=== PATIENT | female | born 2000 | race Caucasian/White ===

== ENCOUNTER 2019-07-05 18:01 | Emergency (ER) | payer OTHER ==
--- OUTSIDE RECORDS SUMMARY | 2019-07-05 18:03 | XMS REPORT | Clinical Summary ---
:2000 Author Organization [facility] Address [address] [place] [address] Care Team Providers Name Role Phone Pcp, No Primary Care Provider Unavailable Allergies Active Allergy Reactions Severity Noted Date Comments Dicyclomine Swelling 03/24/2018 Metoclopramide Hcl Other (See Comments) 04/15/2018 Muscle "Twitching" Medications Medication Sig Dispensed Refills Start Date End Date Status promethazine (PHENERGAN) Take 12.5 mg by 0 Active 12.5 MG tablet mouth every 6 (six) hours as needed for Nausea. ondansetron (ZOFRAN-ODT) Take 4 mg by 0 Active 4 MG disintegrating mouth every 8 tablet (eight) hours as needed for Nausea. melatonin 3 mg Tab Take 3 mg by 0 Active tablet mouth every night as needed. Active Problems Not on file Social History Tobacco Use Types Packs/Day Years Used Date Never Smoker Smokeless Tobacco: Never Used Alcohol Use Drinks/Week oz/Week Comments No Sex Assigned at Date Recorded Not on file Job Start Date Occupation Industry Not on file Not on file Not on file Travel History Travel Start Travel End No recent travel history available. Last Filed Vital Signs Not on file Plan of Treatment Not on file Results Not on fileafter 07/04/2018 Insurance Payer Benefit Plan / Group Subscriber ID Type Phone Address [facility] x[facility] HMO/POS CARE CHOICE
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
--- OUTSIDE RECORDS SUMMARY | 2019-07-05 18:04 | XMS REPORT ---
:2000 [facility] Address [address] [place] [address] [address] [place] [address] Care Team Providers Name Role Phone CAMILO HORAN Unavailable Unavailable DAVON MEEKS Unavailable Unavailable MUJICA MSONTHI - Unavailable Unavailable Problems This patient has no known problems. Allergies, Adverse Reactions, Alerts This patient has no known allergies or adverse reactions. Medications This patient has no known medications. Encounters Start End Encounter Admission Attending Care Care Encounter Date/Time Date/Time Type Type Clinicians Facility Department ID 2017-02-06 2017-02-08 Inpatient 1 [facility] [id number] 03:57:00 15:52:00 MSONTHI Results Test Description Test Time Test Comments Text Results Atomic Results Result Comments TISSUE EXAM 2018-04-21 18:38:00 Surgical Pathology Report Case: [id number] Authorizing Provider: Camilo Horan, Collected: 04/18/2018 0951 Ordering Location: [facility] ENDOSCOPY Received: 04/18/2018 1139 SERVICES Pathologist: Arlette Chong MD Specimens: A) - Duodenum, BX B) - Biopsy, Gastric, RANDOM BX C) - Distal Esophagus, BX D) - Proximal Esophagus, BX A. DUODENUM, BIOPSY: - NO SIGNIFICANT PATHOLOGIC ABNORMALITIESB. STOMACH, RANDOM BIOPSY: - MINIMAL CHRONIC INFLAMMATION WITH REACTIVE CHANGE - NO HELICOBACTER PYLORI MICROORGANISMS IDENTIFIEDC. DISTAL ESOPHAGUS, BIOPSY: - NO SIGNIFICANT PATHOLOGIC ABNORMALITIESD. PROXIMAL ESOPHAGUS, BIOPSY: - NO SIGNIFICANT PATHOLOGIC ABNORMALITIESCC/pl Signing Pathologist Direct Phone Line: [phone] signed by Arlette Chong MD on 04/21/2018 at 6:38 [id number] x4; [id number] x1; [id number] x 1Intractable vomiting with nausea A. Duodenum biopsy. B. Random gastric biopsy. C. Distal esophagus biopsy. D. Proximal esophagus biopsy Specimen is received in four containers of formalin all labeled with the patient's information.Specimen A: Labeled "duodenum biopsy" consists of multiple fragments of bowden tissue ranging from 0.1 to 0.3 cm, submitted in A1.Specimen B: Labeled "random gastric biopsy" consists of four fragments of bowden tissue ranging from 0.3 to 0.6 cm, submitted in B1.Specimen C: Labeled "distal esophagus biopsy" consists of a 0.2 cm fragment of off-white soft tissue submitted in C1.Specimen D: Labeled "proximal esophagus biopsy" consists of a single fragment of off-white tissue measuring 0.2 cm, submitted entirely in D1. CG/Nikita: The duodenum biopsy consists of multiple pieces of small bowel mucosa with intact villous and lamina propria content. There is no acute inflammation, granuloma or dysplasia is present. The PAS stain does not show metaplastic gastric epithelium. No increased intraepithelial lymphocytes to suggest celiac disease. B. The stomach random biopsy consists of multiple pieces of oxyntic mucosa with mild lymphocytic infiltrate in the lamina propria. No acute inflammation, intestinal metaplasia or dysplasia is present. No Helicobacter pylori microorgansim is identified by Warthin-starry stain. C and D: The distal esophagus and proximal esophagus shows similar findings. They show multiple pieces of squamous mucosa with no significant pathologic abnormalities. No features of reflux esophagitis or dysplasia is seen. HEPATIC FUNCTION PANEL 2018-03-24 22:11:00 Test Item Value Reference Range Comments TOTAL PROTEIN (BEAKER) (test klne=080) 7.3 gm/dL 6.0-8.3 ALBUMIN (BEAKER) (test msyk=3124) 4.3 g/dL 3.5-5.0 BILIRUBIN TOTAL (BEAKER) (test cyuh=839) 0.4 mg/dL 0.2-1.2 BILIRUBIN DIRECT (BEAKER) (test sefg=573) 0.1 mg/dL 0.1-0.5 ALKALINE PHOSPHATASE (BEAKER) (test ywoz=942) 59 U/L 40-150 AST (SGOT) (BEAKER) (test tkrf=159) 14 U/L 5-34 ALT (SGPT) (BEAKER) (test aqhv=804) 14 U/L 6-55 CT, [id number] 20:48:00Reason for exam:->abdominal painIs the patient ?->UnknownWhat is the patient's sedation requirement?->No SedationFINAL REPORT CT, ABDOMEN \\T\\ PELVIS, WITH IV CONTRAST INDICATION: abdominal paingi bleed COMPARISON: None TECHNIQUE:Post contrast abdomen and pelvis CT. Coronal and sagittal reformatted images obtained. DOSE REDUCTION: Dose modulation, iterative reconstruction, and/or weight-based adjustment of the mA/kV was utilized to reduce the radiation dose to as low as reasonably achievable. FINDINGS: Lower thorax: Visible airspaces clear. No effusion. Liver: No parenchymal abnormality.Gallbladder and biliary tree: Prior cholecystectomy. Mild central ductal prominence without dilation.Pancreas: No acute findings.Spleen: No acute findingsAdrenal Glands: No acute findings.Kidneys and ureters: No hydronephrosis or nephrolithiasis.Bladder and reproductive organs: Intrauterine device appears appropriately positioned. Stomach and Duodenum: No significant findings.Small and large intestine: Normal calibers.Appendix: Normal. Major vascular structures : Normal aortic caliber.Peritoneum and retroperitoneum: No free air, fluid or adenopathy. Skeleton: No acute bony abnormality.Additionalfindings: None. IMPRESSION: No acute abnormality in the abdomen or pelvis to explain abdominal pain. Signed: JR Conn Robert [facility] Verified Date/Time: 03/24/2018 20:48:41 Reading Location: [address] Reading Room [facility] [id number] 15:50:00 Test Item Value Reference Range Comments SODIUM (BEAKER) (test 137 meq/L 136-145 aiiz=283) POTASSIUM (BEAKER) (test 4.0 meq/L 3.5-5.1 lbzz=374) CHLORIDE (BEAKER) (test 106 meq/L 98-107 infn=321) CO2 (BEAKER) (test 24 meq/L 22-29 tbsz=228) BLOOD UREA NITROGEN 15 mg/dL 7-21 (BEAKER) (test vbsh=864) CREATININE (BEAKER) (test 0.70 mg/dL 0.57-1.25 exor=445) GLUCOSE RANDOM (BEAKER) 91 mg/dL 70-105 (test bchd=282) CALCIUM (BEAKER) (test 9.1 mg/dL 8.4-10.2 rwfe=828) EGFR (BEAKER) (test mL/min/1.73 sq m INSUFFICIENT CLINICAL DATA fxkt=0113) TO CALCULATE ESTIMATED GFR. URINALYSIS W/ [id number] 15:39:00 Test Item Value Reference Range Comments COLOR (BEAKER) (test glrf=679) Yellow CLARITY (BEAKER) (test vzag=125) Clear SPECIFIC GRAVITY UA (BEAKER) (test 1.018 1.001-1.035 ovez=665) PH UA (BEAKER) (test wwvq=181) 7.0 5.0-8.0 PROTEIN UA (BEAKER) (test dpcr=480) Negative Negative GLUCOSE UA (BEAKER) (test zamx=047) Negative Negative KETONES UA (BEAKER) (test gweh=839) Negative Negative BILIRUBIN UA (BEAKER) (test mzdw=641) Negative Negative BLOOD UA (BEAKER) (test dkqq=086) Negative Negative NITRITE UA (BEAKER) (test fplz=865) Negative Negative LEUKOCYTE ESTERASE UA (BEAKER) (test Negative Negative ycup=973) UROBILINOGEN UA (BEAKER) (test zacf=476) 0.2 mg/dL 0.2-1.0 RBC UA (BEAKER) (test owqu=526) 1 /HPF WBC UA (BEAKER) (test hxdx=544) 1 /HPF SQUAMOUS EPITHELIAL (BEAKER) (test 3 /HPF csrl=226) SOURCE(BEAKER) (test cofm=5241) Urine, Clean Catch SCREEN, [id number] 15:38:00 Test Item Value Reference Range Comments TEST URINE (BEAKER) (test joqs=374) Negative PT/[id number] 15:37:00 Test Item Value Reference Range Comments PROTIME (BEAKER) (test fdrf=303) 14.5 seconds 11.7-14.7 INR (BEAKER) (test hxqk=334) 1.1 <=5.9 PARTIAL THROMBOPLASTIN TIME (BEAKER) (test 30.2 seconds 22.5-36.0 zsig=863) RECOMMENDED COUMADIN/WARFARIN INR THERAPY RANGESSTANDARD DOSE: 2.0 - 3.0 Includes: PROPHYLAXIS forvenous thrombosis, systemic embolization; TREATMENT for venous thrombosis and/or pulmonary embolus.HIGH RISK: Target INR is 2.5-3.5 for patients with mechanical heart valves.CBC W/PLT COUNT & AUTO [id number] 15:30:00 Test Item Value Reference Range Comments WHITE BLOOD CELL COUNT (BEAKER) (test vnkn=963) 10.6 K/ L 3.5-10.5 RED BLOOD CELL COUNT (BEAKER) (test wdwy=163) 4.41 M/ L 3.93-5.22 HEMOGLOBIN (BEAKER) (test dlga=542) 13.4 GM/DL 11.2-15.7 HEMATOCRIT (BEAKER) (test ylwh=519) 40.1 % 34.1-44.9 MEAN CORPUSCULAR VOLUME (BEAKER) (test uzzg=363) 90.9 fL 79.4-94.8 MEAN CORPUSCULAR HEMOGLOBIN (BEAKER) (test 30.4 pg 25.6-32.2 bnjx=887) MEAN CORPUSCULAR HEMOGLOBIN CONC (BEAKER) (test 33.4 GM/DL 32.2-35.5 sbpk=753) RED CELL DISTRIBUTION WIDTH (BEAKER) (test 12.5 % 11.7-14.4 aihz=000) PLATELET COUNT (BEAKER) (test sxpc=259) 282 K/CU MM 150-450 MEAN PLATELET VOLUME (BEAKER) (test ekbx=358) 10.0 fL 9.4-12.3 NUCLEATED RED BLOOD CELLS (BEAKER) (test 0 /100 WBC 0-0 cyzr=025) NEUTROPHILS RELATIVE PERCENT (BEAKER) (test 64 % phlk=046) LYMPHOCYTES RELATIVE PERCENT (BEAKER) (test 28 % dymy=371) MONOCYTES RELATIVE PERCENT (BEAKER) (test 7 % ulbp=606) EOSINOPHILS RELATIVE PERCENT (BEAKER) (test 1 % hrqw=633) BASOPHILS RELATIVE PERCENT (BEAKER) (test 1 % bmkd=590) NEUTROPHILS ABSOLUTE COUNT (BEAKER) (test 6.77 K/ L 1.56-6.13 kfet=728) LYMPHOCYTES ABSOLUTE COUNT (BEAKER) (test 2.94 K/ L 1.18-3.74 tsrp=597) MONOCYTES ABSOLUTE COUNT (BEAKER) (test 0.71 K/ L 0.24-0.36 gjww=515) EOSINOPHILS ABSOLUTE COUNT (BEAKER) (test 0.13 K/ L 0.04-0.36 spip=287) BASOPHILS ABSOLUTE COUNT (BEAKER) (test 0.05 K/ L 0.01-0.08 apiq=029) IMMATURE GRANULOCYTES-RELATIVE PERCENT (BEAKER) 0 % 0-1 (test bwwb=5375) ESOPHAGRAM/BARIUM [id number] 08:50:[address] [address]PMBXFFNEOD IMAGING REPORTPatient Name : NIKUNJ WALTERS of Service: [id number]: 17 Sex: F Order #: [id number] Room: [facility] 4NEDOB: 2000 X-Ray Number: [id number] Record Number: [id number] Hospital Number: [id number] Physician: Domo WAGNER Physician: Madelin STEVENSON contrast upper GI 9:15 AMHistory : Esophageal spasm, previous esophageal dilation, chest pain.Fluoroscopy time:1 minute, 32 imagesFindings:Barium was given orally.The esophagus has normal course, caliber, mucosal pattern and motility.There are no persistent intraluminal filling defects or stricturesidentified.There was no evidence for gastroesophageal reflux during the examination.There is no evidence for hiatal hernia.The stomach and duodenum are free of any persistent filling defects, have anormal mucosal pattern and demonstrate no evidence for ulcers.Impression: Normal upper GI study.Electronically Signed By: Puneet Ann M.D., 01/15/2018 8 :48 AMLegally authenticated by SHADY CRAVEN 2018-01-15 08:48:44MRI BRAIN [id number] 18:56:[address] [address]PNFAHWOWZW IMAGING REPORTPatient Name: NIKUNJ WALTERS of Service: [id number]: 17 Sex: F Order #: [id number] Room: [facility] 4NEDOB: 1999 X-Ray Number: [id number] Record Number: [id number] Hospital Number: [id number] Physician: Domo WAGNER Physician: SAM WAGNER brain with and without contrast 4:30 PMHISTORY: Headache with vomiting.Findings:Diffusion-weighted imaging demonstrates no evidence for acute infarct.Intracranially, there is no mass effect or midline shift.There is no extra-axial fluid collection, intracranial hemorrhage orhydrocephalus.Craniovertebral junction is normal without tonsillar herniation or Chiari Imalformation.Valdovinos-white junction is preserved.Thevisualized paranasal sinuses demonstrate no air-fluid levels. Themastoid air cells appear clear.There are no masses detected.Enhancement pattern is physiologic.Impression :Normal MRI of the brain with and without contrast.Electronically Signed By: Puneet Ann M.D., 01/14/2018 6:54 PMLegally authenticated by SHADY CRAVEN 2017 18:54:31HCT/[id number] 06:39:00 Test Item Value Reference Range Comments HGB (test code=HGB) 12.6 G/DL 11.5-15.5 HCT (test code=HCT) 38.1 % 34-46 MCV (test code=MCV) 90.3 FL 80-98 MCHC (test code=MCHC) 33.1 G/DL 32.5-36.5 [id number] 21:50:00 Test Item Value Reference Range Comments HGB (test code=HGB) 12.5 G/DL 11.5-15.5 HCT (test code=HCT) 37.1 % 34-46 MCV (test code=MCV) 88.5 FL 80-98 MCHC (test code=MCHC) 33.7 G/DL 32.5-36.5 CT ABDOMEN/PELVIS [id number] 10:30:[address] [address]YKTFTLCASX IMAGING REPORTPatient Name : NIKUNJ WALTERS NDate of Service: [id number]: 17 Sex: F Order #: [id number] Room: 436/ A 4NEDOB: 2000 X-Ray Number: [id number] Record Number: [id number] Hospital Number: [id number] Physician: HELLEN WAGNERAROrdering Physician: MICHELLE WAGNER abdomen and pelvis with contrast 9 :15 PMHISTORY: Diffuse abdominal pain.This CT exam was performed using one ormore of the following dosereduction techniques: Automated exposure control, adjustment of the MAand/or KV according to patient size or use of iterative reconstructiontechnique.FINDINGS:There has been cholecystectomy.There is an intrauterine device present.Solid abdominal viscera demonstrate no mass lesions or lacerations.Both kidneys enhance symmetrically. There is no hydronephrosis.There is no free air or free fluid. There are no abnormal fluidcollections.There is no CT evidence for appendicitis, diverticulitis or pancreatitis.There is no small bowel obstruction detected.There is no obvious enlarged adenopathy.IMPRESSION:No acute intra-abdominal or intrapelvic abnormality is detected.Electronically Signed By: Puneet Ann M.D., 2017 10:28 AMLegally authenticated by SHADY CRAVEN 1138-09-0294:28:15HCT/[id number] 05:58:00 Test Item Value Reference Range Comments HGB (test code=HGB) 13.2 G/DL 11.5-15.5 HCT (test code=HCT) 37.4 % 34-46 MCV (test code=MCV) 87.4 FL 80-98 MCHC (test code=MCHC) 35.3 G/DL 32.5-36.5 [id number] 05:51:00 Test Item Value Reference Range Comments LIPASE (test code=LIPA) 39 U/L 23-300 [id number] 17:17:00 Test Item Value Reference Range Comments BLOOD TYPE (test code=TYPE) O Rh Positive ANTIBODY SCREEN (test code=SCREEN) NEGATIVE NEGATIVE [id number] 16:57:00 Test Item Value Reference Range Comments SODIUM (test code=NA) 141 MMOL/L 137-145 K+ (test code=KSERUM) 4.5 MMOL/L 3.5-5.1 PLEASE NOTE NEW REFERENCE RANGE(S) IN EFFECT EFFECTIVE 05/18/2010 - NEW ANALYZER (T-ZONE 5600) CHLORIDE (test code=CL) 103 MMOL/L 98-107 CO2 (test code=CO2) 23 MMOL/L 22-30 BUN (test code=BUN) 17 MG/DL 7-17 CREA (test code=CREA) 0.6 MG/DL 0.7-1.2 GLUCOSE (test 72 MG/DL 70-99 Fasting glucose normal code=GLUCOSE) <100 MG/DL- [place] [employer] recommendation CALCIUM (test 10.2 MG/DL 8.4-10.2 code=CABLOOD) TOTPROT (test 8.5 G/DL 6.3-8.2 code=TOTPROT) ALBUMIN (test 4.9 G/DL 3.5-5.0 code=ALBSERUM) BILITOT (test 1.1 MG/DL 0.2-1.3 code=BILITOT) AST (test code=AST) 24 U/L 15-46 PHOSALK (test 63 U/L 38-126 code=PHOSALK) ALT (test code=ALT) 33 U/L 13-69 GFR (test code=GFR) 137 mL/min/1.73m2 A GFR of >90 mL/min/1.73m2 is considered normal. B-HCG QUAL (KIT)2018-01-12 16:51:00 Test Item Value Reference Range Comments HCGQUAL (test code=HCGQUAL) NEGATIVE NEGATIVE URINE: NEGATIVE=< 20 mIU/ML; POSITIVE=>/=20 mIU/ML SERUM: NEGATIVE=< 10 mIU/ML; POSITIVE=>/=10 mIU/ML SOURCE (test code=SOURCE) SERUM HCG INTERNAL POSITIVE CNTRL PASS PASS (test code=HCGIPC) HCG LOT # (test code=UHCGLOT) [id number] HCG EXPIRATION DATE (test 09-01 code=UHCGEXP) PROTHROMBIN TIME WITH [id number] 16:41:00 Test Item Value Reference Range Comments PROTHROMBIN TIME (test 13.4 SECONDS 12.0-14.6 INR Usual Range=2 to 3 for code=PT) prevention of deep vein thrombosis (DVT) INR (test code=INR) 1.0 [id number] 16:41:00 Test Item Value Reference Range Comments PTT (test code=PTT) 26.9 SECONDS 24.4-36.3 HEPARIN THERAPEUTIC RANGE 57-92 SECONDS [id number] 16:31:00 Test Item Value Reference Range Comments WBC (test code=WBC) 10.8 K/UL 3.5-10.9 RBC (test code=RBC) 4.95 M/UL 4.0-5.0 HGB (test code=HGB) 14.9 G/DL 11.5-15.5 HCT (test code=HCT) 43.2 % 34-46 MCV (test code=MCV) 87.3 FL 80-98 MCH (test code=MCH) 30.1 PG 28-32 MCHC (test code=MCHC) 34.5 G/DL 32.5-36.5 RDW (test code=RDW) 12.1 % 11.5-14.5 PLT (test code=PLT) 297 K/UL 150-450 MPV (test code=MPV) 10.2 FL 7.4-10.4 MANDIFF (test code=MANDIFF) NO SCAN (test code=SCAN) NO NEUT% (test code=NEUT%) 61.1 % 40-75 LYMPH% (test code=LYMPH%) 31.1 % 24-44 MONO% (test code=MONO%) 6.6 % 0-13 EOS% (test code=EOS%) 0.7 % 0-4 BASO % (test code=BASO%) 0.3 % 0-2 IG% (test code=IG%) 0.2 % 0-1 IG%=Metamyelocytes, Myelocytes, and Promyelocytes. (Immature neutrophils not including "bands".) > 3% IG indicates risk of sepsis NRBC% (test code=NRBC%) 0 /100 WBC ABS NEUT (test code=NEUT) 6.6 K/UL 1.2-7.2 OCCULT BLOOD, [id number] 16:25:00 Test Item Value Reference Range Comments OCCULT BLOOD FECES (test code=OCCBLFEC) NEGATIVE NEGATIVE LOT# CRD (test code=LOT# CRD) [id number] EXP CRD (test code=EXP CRD) [id number] LOT# DVL (test code=LOT# DVL) [id number] EXP DVL (test code=EXP DVL) [id number] INT QC (test code=INT QC) PASSED PATHOLOGY [id number] 13:54:00- TISSUE CONSULTATION REPORTBAPTTEXAS HEALTH HARR[facility] WORTHDEPARTMENT OF PATHOLOGYP.O[address], [place] [address] aSONY LOVE M.D.KYLE COUCH M.D.MAHENDRA YEAGER M.D.WYATT CORREIA M.D. Patient: NIKUNJ WALTERS 2000 16 FRoom:[facility]#: [id number] Ordering Physician: DAVID SOSA Rec.: 02/07/2017Date of Proc.: 02/06/2017Lab No.: [id number] PRE-OPERATIVE DIAGNOSIS:- Rule out eosinophilic gastritis.FINAL ANATOMIC DIAGNOSIS:A. DUODENUM, BIOPSIES: NO SIGNIFICANT HISTOLOGIC ABNORMALITY-B. STOMACH, RANDOM BIOPSIES: NO SIGNIFICANT HISTOLOGIC ABNORMALITY-C. ESOPHAGUS, MID, BIOPSIES: CHRONIC ESOPHAGITISMICROSCOPIC EXAMINATION:- A. The duodenal biopsies have a normal villous height andarchitecture. No increased inflammation or infectious organisms areidentified. There are no features to suggest the presence of celiacdisease.- B. The random gastric biopsies are histologically within normallimits. No increased inflammation is present. No goblet cellmetaplasia or Helicobacter pylori organisms are seen, confirmed byAlcian blue and Yue stains.- C. The mid esophageal biopsies show features of a chronicesophagitis. Lymphocytes are readily identified throughout thelower one-half of the epithelium. No acute inflammation oreosinophils are present. No goblet cell metaplasia or infectiousorganisms are identified, confirmed by Alcian blue and Steinerstains.GROSS APPEARANCE:- A. Specimen A is labeled "duodenal biopsy." The four nodular tanbiopsies are 0.8 x 0.8 x 0.2 cm in aggregate, submitted as A.- B. Specimen B is labeled "random gastricbiopsy." The twostrip-like bowden biopsies are 0.6 x 0.6 x 0.2 cm in aggregate,submitted as B.- C.Specimen C is labeled "mid esophageal biopsy." The four bowden totranslucent biopsies are 0.6 x 0.5 x 0.1 cm in aggregate, submittedas C.PATHOLOGIST: Mahendra Yeager Electronically Signed: 02/08/2017PATHOLOGY [id number] 15:14:00- TISSUE CONSULTATION REPORTBAHCA HOUSTON HEALTHCARE TOMBALLDEPARTMENT OF PATHOLOGYP.O. [address] [address] aDE GABRIELA LOVE M.D.JASON E. MATHERNE, M.D.JOSEPH M. WEMPE, M.D. Patient: NIKUNJ WALTERS Rachel 2000 16 FRoom:[facility]#: [id number] Ordering Physician: GIGI DICKERSON Rec.: 02/05/2017Date of Proc.: 02/05/2017Lab No.: [id number] PRE-OPERATIVE DIAGNOSIS:- Biliary dyskinesiaFINAL ANATOMIC DIAGNOSIS: GALLBLADDER, CHOLECYSTECTOMY:- CHRONIC CHOLECYSTITIS-- LYMPH NODE, CYSTIC DUCT, REMOVAL: NEGATIVE FOR MALIGNANCYMICROSCOPIC EXAMINATION:- A single HGROSS APPEARANCE:- The specimen is labeled "gallbladder." The 5.5 x 3.5 x 3.5 cmdistended gallbladder has a pink-bowden smooth and glistening serosa.A 7 mm ovoid lymph node is identified in the area of the cysticduct. Opening the gallbladder lengthwise reveals a small amount ofgolden-yellow liquid bile. No stones are present within the lumenor specimen container. The mucosa is walters- orange togreen with avelvety texture. No cholesterolosis is appreciated grossly. Thewall ranges from 1-2 mmin thickness. Sections are submitted in asingle cassette.PATHOLOGIST: Mahendra Yeager Electronically Signed: ABDOMEN 2 [id number] 00:47:00BAPam[place] [id number] IMAGING REPORTPatient Name : NIKUNJ WALTERS NDate of Service: [id number]: 16 Sex: F Order #: [id number] Room: [facility]: 2000 X-Ray Number: [id number] Record Number: [id number] Hospital Number: [id number] Physician: LESLY ADAMOrdering Physician: Cynthia ARELLANO 2 views 12:15 AM 02/06/2017HISTORY: Acute nausea and vomiting, recent cholecystectomyFINDINGS: There is scattered small and large bowel gas without significantdilation, although a few air-fluid levels are present. There is no freeair. There are moderate colonic feces, mainly in the right colon.Cholecystectomy clips are notedIMPRESSION: Nonspecific bowel gas patternElectronically Signed By: Baltazar Young M.D., 02/06/2017 12:45 AMLegally authenticated by LAYO KHAN 2017-02-06 00:45:34HEPATOBILIARY [id number] 11:57:00BAPamela [place] [id number] IMAGING REPORTPatient Name: NIKUNJ WALTERS of Service: [id number]: 16 Sex: F Order #: [id number] Room: [facility] A 2NEDOB: 2000 X-Ray Number: [id number] Record Number: [id number] Hospital Number: [id number] Physician: JAKOB MUJICA -Ordering Physician : JAKOB MUJICA -Nuclear medicine hepatobiliary imaging with ejection fraction 11:29 AMHistory: Abdominal painDosage: 6.2 mCi technetium 99m CholetecEnsure was given orally for ejection fraction.Findings:Dynamic imaging was performed centered over the right upper quadrant.There is prompt flow of radiotracer to the liver and prompt uptake ofradiotracer by the liver. There is prompt excretion of radiotracer into thesmall bowel. There is prompt excretion of radiotracer into the gallbladder.Gallbladder ejection fraction is equal to 3.4%, abnormally low .Impression:Scintigraphic findings consistant with gallbladder dysfunction/chroniccholecystitis or billiary dyskinesia, in the proper clinical setting withgallbladder EF=3.4 %.( Normal GB EF>35%) Electronically Signed By: Puneet Ann M.D., 02/04/2017 11:55 AMLegally authenticated by SHADY CRAVEN 2017-02-04 11:55:34
[2019-07-05] MEDS ORDERED: NA CHLORIDE 0.9% 1,000 ML ONE (18:43)
[2019-07-05] MEDS ORDERED: ONDANSETRON 4 MG/2 ML VIAL ONE (18:43)
[2019-07-05 19:31] LABS: Absolute Lymphocytes (CBC) 0.7 K/uL (0.7-4.9); Basophils % 0.2 % (0-1.3); Hematocrit 41.5 % (36.0-45.0); Lymphocytes % 13.9 % (15.3-44.8); MPV 8.7 fL (7.6-11.3); RBC Red Blood Cell Count 4.46 M/uL (3.86-4.86)
[2019-07-05 19:39] LABS: Urine Blood 2+ (NEG); Urine Glucose TRACE (NEG); Urine Protein 1+ (NEG); Urine Specific Gravity 1.025 (1.005-1.030)
[2019-07-05 19:43] LABS: Potassium 3.4 mmol/L (3.5-5.1)
[2019-07-05 19:58] LABS: Calcium Oxalate Crystals- Ur MODERATE (NONE SEEN); Urine Bacteria 20-50 /HPF (<20); Urine Culture Reflex Order NOT NEEDED; Urine Mucus SLIGHT /HPF (NONE SEEN); Urine RBC <5 /HPF (NONE SEEN)
--- NOTE | 2019-07-05 20:03 | ER ---
Nurse's Notes [facility] Name: Mitzi Dunn Age: 19 yrs Sex: Female : 2000 Arrival Date: 07/05/2019 Time: 18:05 Bed 8 Private MD: Diagnosis: Urinary tract infection, site not specified;Low back pain Presentation: 07/05 18:07 Presenting complaint: Patient states: Back pain since yesterday with nausea, vomiting, la1 and fatigue. Transition of care: patient was not received from another setting of care. Onset of symptoms was July 05, 2019. Risk Assessment: Do you want to hurt yourself or someone else? Patient reports no desire to harm self or others. Initial Sepsis Screen: Does the patient meet any 2 criteria? No. Patient's initial sepsis screen is negative. Does the patient have a suspected source of infection? No. Patient's initial sepsis screen is negative. Care prior to arrival: None. 18:07 Method Of Arrival: Ambulatory la1 18:07 Acuity: MARIBEL 3 la1 Triage Assessment: 18:10 General: Appears in no apparent distress. comfortable, Behavior is cooperative, bp appropriate for age, anxious. Pain: Complains of pain in low back area. EENT: No deficits noted. Neuro: No deficits noted. Cardiovascular: No deficits noted. Respiratory: No deficits noted. GI: Reports nausea, vomiting. : No signs and/or symptoms were reported regarding the genitourinary system. Derm: No deficits noted. Musculoskeletal: No deficits noted. Historical: - Allergies: 18:08 Reglan; la1 18:08 Bentyl; la1 - PMHx: 18:08 None; la1 - Immunization history:: Adult Immunizations up to date. - Social history:: Smoking status: Patient/guardian denies using tobacco. - Ebola Screening: : No symptoms or risks identified at this time. Screenin:10 Abuse screen: Denies threats or abuse. Denies injuries from another. Nutritional bp screening: No deficits noted. Tuberculosis screening: No symptoms or risk factors identified. Fall Risk None identified. Assessment: 18:10 General: SEE TRIAGE NOTE. bp 19:35 General: Appears in no apparent distress. comfortable, slender, well groomed, Behavior ak1 is calm, cooperative. Neuro: Level of Consciousness is awake, alert, obeys commands, Oriented to person, place, time, situation, Appropriate for age Numerical Control Machine Tool Operator are equal bilaterally Moves all extremities. Speech is normal. Cardiovascular: No deficits noted. Respiratory: Airway is patent Trachea midline Respiratory effort is even, unlabored, Respiratory pattern is regular. GI: Abdomen is flat, non-distended, Bowel sounds present X 4 quads. Abd is soft and non tender X 4 quads. : Reports burning with urination. EENT: No signs and/or symptoms were reported regarding the EENT system. Derm: No signs and/or symptoms reported regarding the dermatologic system. Musculoskeletal: No signs and/or symptoms reported regarding the musculoskeletal system. Vital Signs: 18:08 Pulse 104; Resp 18; Temp 98.7; Pulse Ox 99% on R/A; Weight 45.36 kg; Height 5 ft. 2 in. la1 (157.48 cm); 18:09 BP 93 / 62; la1 19:35 BP 92 / 65; Pulse 67; Resp 16; Temp 98.6; Pulse Ox 100% on R/A; ak1 18:08 Body Mass Index 18.29 (45.36 kg, 157.48 cm) la1 ED Course: 18:05 Patient arrived in ED. mr 18:08 Triage completed. la1 18:09 Arm band placed on right wrist. la1 18:17 Gumaro Mclain, DORINA is Primary Nurse. bp 18:18 Pilar Lomeli FNP-C is PHCP. snw 18:18 Eugenia Kaur MD is Attending Physician. snw 18:50 Inserted saline lock: 20 gauge in right antecubital area, using aseptic technique. bp Blood collected. 18:57 Patient has correct armband on for positive identification. Bed in low position. Call bp light in reach. Side rails up X2. Adult w/ patient. 19:26 Primary Nurse role handed off by Gumaro Mclain, DORINA ak1 19:26 Kaylah Flores, DORINA is Primary Nurse. ak1 20:17 No provider procedures requiring assistance completed. IV discontinued, intact, ak1 bleeding controlled, No redness/swelling at site. Pressure dressing applied. Administered Medications: 18:45 Drug: NS 0.9% 1000 ml Route: IV; Rate: 1 bolus; Site: right antecubital; bp 20:18 Follow up: IV Status: Completed infusion; IV Intake: 900ml ak1 18:45 Drug: Zofran 4 mg Route: IVP; Site: right antecubital; bp 19:37 Follow up: Response: No adverse reaction ak1 20:05 Drug: fentaNYL (PF) 25 mcg {Note: rass 0.} Route: IVP; Site: right antecubital; rr5 20:18 Follow up: Response: No adverse reaction; Pain is decreased; RASS: Alert and Calm (0) ak1 20:08 Drug: Rocephin 1 grams Route: IV; Rate: calculated rate; Site: right antecubital; rr5 20:17 Follow up: IV Status: Completed infusion; IV Intake: 10ml ak1 Intake: 20:17 IV: 10ml; Total: 10ml. ak1 20:18 IV: 900ml; Total: 910ml. ak1 Outcome: 19:52 Discharge ordered by MD. snw 20:18 Discharged to home via wheelchair, with family. ak1 20:18 Condition: good 20:18 Discharge instructions given to patient, family, Instructed on discharge instructions, follow up and referral plans. no drinking with medication, no driving heavy equipment, medication usage, safe sex practices, control, Demonstrated understanding of instructions, follow-up care, medications, Prescriptions given X 2. 20:18 Patient left the ED. ak1 Signatures: Pilar Lomeli, SENIOR INFORMATICA ETL DEVELOPER-C SENIOR INFORMATICA ETL DEVELOPER-Edgarw Liya MontgomeryNima RN RN cody1 Kaylah Flores RN RN ak1 Gumaro Mclain RN RN bp Roque, Raymond RN RN rr5
[2019-07-05] MEDS ORDERED: FENTANYL CITR 100 MCG/2 ML ONE (20:04)
[2019-07-05] MEDS ORDERED: CEFTRIAXONE/SWI 1gm 1 GM/10 ML SYR ONE (20:04)
--- NOTE | 2019-07-05 20:04 | EDPHYS ---
Physician Documentation [facility] Name: Mitzi Dunn Age: 19 yrs Sex: Female : 2000 Arrival Date: 07/05/2019 Time: 18:05 Bed 8 Private MD: ED Physician Eugenia Kaur HPI: 07/05 18:28 This 19 yrs old Female presents to ER via Ambulatory with complaints of snw Nausea/Vomiting, Back Pain. 18:28 The patient presents to the emergency department with nausea, vomiting. Onset: The snw symptoms/episode began/occurred suddenly, last night. Possible causes: unknown. The symptoms are aggravated by nothing. The symptoms are alleviated by nothing. Associated signs and symptoms: Pertinent positives: anorexia, urinary urgency. Severity of symptoms: At their worst the symptoms were moderate in the emergency department the symptoms are unchanged. It is unknown whether or not the patient has had similar symptoms in the past. It is unknown whether or not the patient has recently seen a physician. pt states bp this am was 76/60. Historical: - Allergies: 18:08 Reglan; la1 18:08 Bentyl; la1 - PMHx: 18:08 None; la1 - Immunization history:: Adult Immunizations up to date. - Social history:: Smoking status: Patient/guardian denies using tobacco. - Ebola Screening: : No symptoms or risks identified at this time. ROS: 18:27 Constitutional: Negative for fever, chills, and weight loss, Eyes: Negative for injury, snw pain, redness, and discharge, ENT: Negative for injury, pain, and discharge, Neck: Negative for injury, pain, and swelling, Cardiovascular: Negative for chest pain, palpitations, and edema, Respiratory: Negative for shortness of breath, cough, wheezing, and pleuritic chest pain, MS/Extremity: Negative for injury and deformity, Skin: Negative for injury, rash, and discoloration, Neuro: Negative for headache, weakness, numbness, tingling, and seizure, Psych: Negative for depression, anxiety, suicide ideation, homicidal ideation, and hallucinations. 18:27 Abdomen/GI: Positive for nausea, vomiting. 18:27 Back: Positive for pain at rest, of the low back area. 18:27 : Positive for urinary symptoms, urgency, had to get azo to be able to sleep at 0300. Exam: 18:26 Constitutional: This is a well developed, well nourished patient who is awake, alert, snw and in no acute distress. Head/Face: Normocephalic, atraumatic. Eyes: Pupils equal round and reactive to light, extra-ocular motions intact. Lids and lashes normal. Conjunctiva and sclera are non-icteric and not injected. Cornea within normal limits. Periorbital areas with no swelling, redness, or edema. ENT: Nares patent. No nasal discharge, no septal abnormalities noted. Tympanic membranes are normal and external auditory canals are clear. Oropharynx with no redness, swelling, or masses, exudates, or evidence of obstruction, uvula midline. Mucous membranes moist. Neck: Trachea midline, no thyromegaly or masses palpated, and no cervical lymphadenopathy. Supple, full range of motion without nuchal rigidity, or vertebral point tenderness. No Meningismus. Chest/axilla: Normal chest wall appearance and motion. Nontender with no deformity. No lesions are appreciated. Respiratory: Lungs have equal breath sounds bilaterally, clear to auscultation and percussion. No rales, rhonchi or wheezes noted. No increased work of breathing, no retractions or nasal flaring. 18:26 Abdomen/GI: Soft, non-tender, with normal bowel sounds. No distension or tympany. No guarding or rebound. No evidence of tenderness throughout. Skin: Warm, dry with normal turgor. Normal color with no rashes, no lesions, and no evidence of cellulitis. MS/ Extremity: Pulses equal, no cyanosis. Neurovascular intact. Full, normal range of motion. Neuro: Awake and alert, GCS 15, oriented to person, place, time, and situation. Cranial nerves II-XII grossly intact. Motor strength 5/5 in all extremities. Sensory grossly intact. Cerebellar exam normal. Normal gait. Psych: Awake, alert, with orientation to person, place and time. Behavior, mood, and affect are within normal limits. 18:26 Cardiovascular: Rate: tachycardic, Heart sounds: normal. 18:26 Back: pain, that is mild, that is moderate, of the low back area, ROM is normal. Vital Signs: 18:08 Pulse 104; Resp 18; Temp 98.7; Pulse Ox 99% on R/A; Weight 45.36 kg; Height 5 ft. 2 in. la1 (157.48 cm); 18:09 BP 93 / 62; la1 19:35 BP 92 / 65; Pulse 67; Resp 16; Temp 98.6; Pulse Ox 100% on R/A; ak1 18:08 Body Mass Index 18.29 (45.36 kg, 157.48 cm) la1 MDM: 18:21 Patient medically screened. snw 20:00 Data reviewed: vital signs, nurses notes. Data interpreted: Pulse oximetry: on room air snw is 100 %. Interpretation: normal. Counseling: I had a detailed discussion with the patient and/or guardian regarding: the historical points, exam findings, and any diagnostic results supporting the discharge/admit diagnosis, lab results, the need for outpatient follow up, to return to the emergency department if symptoms worsen or persist or if there are any questions or concerns that arise at home. Response to treatment: the patient's symptoms have markedly improved after treatment. Special discussion: Based on the patient's Hx, exam, and Dx evaluation, there is no indication for emergent surgery or inpatient Tx. It is understood by the patient/guardian that if the Sx's persist or worsen they need to return immediately for re-evaluation. Based on the history and exam findings, there is no indication for further emergent testing or inpatient evaluation. I discussed with the patient/guardian the need to see the primary care provider for further evaluation of the symptoms. 07/05 18:18 Order name: Urine Culture [facility] 07/05 18:18 Order name: Urine Microscopic Only; Complete Time: 20:02 w 07/05 18:26 Order name: CBC with Diff; Complete Time: 19:37 snw 07/05 18:26 Order name: Chem 7; Complete Time: 19:48 snw 07/05 18:26 Order name: Blood Culture Adult (2) snw 07/05 18:44 Order name: Urine Dipstick--Ancillary (enter results); Complete Time: 19:48 ms 07/05 18:18 Order name: Urine Test (obtain specimen); Complete Time: 18:43 snw 07/05 18:18 Order name: Urine Dipstick-Ancillary (obtain specimen); Complete Time: 18:43 snw 07/05 18:44 Order name: Urine --Ancillary (enter results); Complete Time: 19:48 ms Administered Medications: 18:45 Drug: NS 0.9% 1000 ml Route: IV; Rate: 1 bolus; Site: right antecubital; bp 20:18 Follow up: IV Status: Completed infusion; IV Intake: 900ml ak1 18:45 Drug: Zofran 4 mg Route: IVP; Site: right antecubital; bp 19:37 Follow up: Response: No adverse reaction ak1 20:05 Drug: fentaNYL (PF) 25 mcg {Note: rass 0.} Route: IVP; Site: right antecubital; rr5 20:18 Follow up: Response: No adverse reaction; Pain is decreased; RASS: Alert and Calm (0) ak1 20:08 Drug: Rocephin 1 grams Route: IV; Rate: calculated rate; Site: right antecubital; rr5 20:17 Follow up: IV Status: Completed infusion; IV Intake: 10ml ak1 Disposition: 07/05/19 19:52 Discharged to Home. Impression: Urinary tract infection, site not specified, Low back pain. - Condition is Stable. - Discharge Instructions: Back Pain, Adult, Urinary Tract Infection, Adult, Rehydration, Adult, Heat Therapy. - Prescriptions for Ultram 50 mg Oral Tablet - take 1 tablet by ORAL route every 6 hours As needed; 12 tablet. Macrobid 100 mg Oral Capsule - take 1 capsule by ORAL route every 12 hours for 10 days; 20 capsule. - Medication Reconciliation Form, Thank You Letter, Antibiotic Education, Prescription Opioid Use form. - Follow up: Private Physician; When: 2 - 3 days; Reason: Recheck today's complaints, Continuance of care, Re-evaluation by your physician. Follow up: Emergency Department; When: As needed; Reason: Worsening of condition. Signatures: Dispatcher [employer] EDPilar Nelson, [employer] PRE[employer] AIRCRAFT SYSTEMS ASSEMBLER-CsnNima Ramírez RN RN Kaylah Monroy RN RN ak1 Gumaro Mclain, RN RN Anoop Diaz, RN RN rr5 Corrections: (The following items were deleted from the chart) 20:18 19:52 07/05/2019 19:52 Discharged to Home. Impression: Urinary tract infection, site ak1 not specified; Low back pain. Condition is Stable. Forms are Medication Reconciliation Form, Thank You Letter, Antibiotic Education, Prescription Opioid Use. Follow up: Private Physician; When: 2 - 3 days; Reason: Recheck today's complaints, Continuance of care, Re-evaluation by your physician. Follow up: Emergency Department; When: As needed; Reason: Worsening of condition. snw
[2019-07-05 20:46] VITALS: BP 92/65; TEMP 98.6; O2SAT 100
== END 2019-07-05 20:18 | disposition home or self-care (01) ==
LOC: ER 18:01
DX: N39.0 Urinary tract infection, site not specified (principal); Z88.8 Allergy status to other drugs, medicaments and biological substances
CPT/HCPCS: 87040 ×2; 87088; 85025; 87086; 80048; 36415; 81025; J3010; J0696; J7030; J2405; 81003; 81015; 96361; 96374; 96375; 99284

== ENCOUNTER 2019-07-09 18:30 | Emergency (ER) | payer OTHER ==
[2019-07-09] MEDS ORDERED: NA CHLORIDE 0.9% 1,000 ML ONE (19:23)
[2019-07-09] MEDS ORDERED: ONDANSETRON 4 MG/2 ML VIAL ONE (19:23)
[2019-07-09] MEDS ORDERED: KETOROLAC 30 MG/ML INJ ONE (19:23)
[2019-07-09] MEDS ORDERED: DIPHENHYDRAMINE 50 MG/ML VIAL ONE (19:23)
[2019-07-09 19:49] LABS: Absolute Lymphocytes (CBC) 2.7 K/uL (0.7-4.9); Basophils % 0.4 % (0-1.3); Hematocrit 44.3 % (36.0-45.0); Lymphocytes % 55.7 % (15.3-44.8); MPV 8.6 fL (7.6-11.3); RBC Red Blood Cell Count 4.82 M/uL (3.86-4.86)
[2019-07-09 19:53] LABS: Urine Appearance CLOUDY; Urine Bilirubin NEGATIVE (NEG); Urine Blood TRACE (NEG); Urine Color RED; Urine Glucose NEGATIVE (NEG); Urine Protein NEGATIVE (NEG)
[2019-07-09 19:55] LABS: Urine Microscopic Reflex ORDER UMIC
[2019-07-09 19:58] LABS: Calcium Oxalate Crystals- Ur FEW (NONE SEEN); Urine Bacteria 20-50 /HPF (<20); Urine Culture Reflex Order REFLEXED; Urine Mucus 2+ /HPF (NONE SEEN)
[2019-07-09 20:02] LABS: Potassium 3.9 mmol/L (3.5-5.1)
[2019-07-09] MEDS ORDERED: NA CHLORIDE 0.9% 50 ML IV ONE (20:24)
[2019-07-09] MEDS ORDERED: CEFTRIAXONE 1000 MG/VIAL ONE (20:24)
--- NOTE | 2019-07-09 20:40 | ER ---
Nurse's Notes [facility] Name: Mitzi Dunn Age: 19 yrs Sex: Female : 2000 Arrival Date: 07/09/2019 Time: 18:31 Bed 24 Private MD: Diagnosis: Urinary tract infection, site not specified Presentation: 07/09 18:42 Presenting complaint: Patient states: Low back pain and urinary symptoms that have sg worsened today, reports being on treatment for UTI symptoms that were diagnosed on Saturday, no improvement at this time, pt reports feeling worse. Transition of care: patient was not received from another setting of care. Onset of symptoms was July 09, 2019. Risk Assessment: Do you want to hurt yourself or someone else? Patient reports no desire to harm self or others. Initial Sepsis Screen: Does the patient meet any 2 criteria? No. Patient's initial sepsis screen is negative. Does the patient have a suspected source of infection? Yes: Dysuria/Frequency/Urgency/UTI. Care prior to arrival: None. 18:42 Method Of Arrival: Ambulatory sg 18:42 Acuity: MARIBEL 3 sg FISHING ROD ASSEMBLER: 18:42 LMP N/A - control method sg Historical: - Allergies: 18:43 Bentyl; sg 18:43 Reglan; sg - Immunization history:: Adult Immunizations up to date. - Social history:: Smoking status: Patient/guardian denies using tobacco. - Ebola Screening: : Patient negative for fever greater than or equal to 101.5 degrees Fahrenheit, and additional compatible Ebola Virus Disease symptoms Patient denies exposure to infectious person Patient denies travel to an Ebola-affected area in the 21 days before illness onset No symptoms or risks identified at this time. Screenin:45 Abuse screen: Denies threats or abuse. Denies injuries from another. Nutritional ak1 screening: No deficits noted. Tuberculosis screening: No symptoms or risk factors identified. Fall Risk None identified. Assessment: 20:43 General: Appears in no apparent distress. comfortable, Behavior is calm, cooperative. ak1 Neuro: Level of Consciousness is awake, alert, obeys commands, Oriented to person, place, time, situation, Moves all extremities. Full function. Cardiovascular: No deficits noted. Respiratory: No deficits noted. GI: No signs and/or symptoms were reported involving the gastrointestinal system. : Reports burning with urination, urinary frequency. EENT: No signs and/or symptoms were reported regarding the EENT system. Derm: No signs and/or symptoms reported regarding the dermatologic system. Musculoskeletal: No signs and/or symptoms reported regarding the musculoskeletal system. Vital Signs: 18:42 BP 121 / 80; Pulse 108; Resp 17; Temp 99.1; Weight 45.36 kg; Height 5 ft. 2 in. (157.48 sg cm); Pain 7/10; 20:43 BP 90 / 71; Pulse 57; Resp 16; Pulse Ox 99% on R/A; ak1 18:42 Body Mass Index 18.29 (45.36 kg, 157.48 cm) sg ED Course: 18:31 Patient arrived in ED. as 18:32 Britany Gates FNP-C is [facility]. kb 18:32 Puneet Dinero MD is Attending Physician. kb 18:43 Triage completed. sg 18:44 Arm band placed on. sg 19:03 Kaylah Flores, RN is Primary Nurse. ak1 19:15 Initial lab(s) drawn, by me, sent to lab. Inserted saline lock: 22 gauge in right fc antecubital area, using aseptic technique. Blood collected. 19:38 Missed attempt(s): 22 gauge in left antecubital area. Bleeding controlled, band aid ak1 applied, catheter tip intact. 20:45 Patient has correct armband on for positive identification. Bed in low position. Call ak1 light in reach. Side rails up X 1. Adult w/ patient. Pulse ox on. NIBP on. 20:51 No provider procedures requiring assistance completed. IV discontinued, intact, ak1 bleeding controlled, No redness/swelling at site. Pressure dressing applied. Administered Medications: 19:37 Drug: TORadol 30 mg Route: IVP; Site: right antecubital; ak1 20:28 Follow up: Response: No adverse reaction ak1 19:37 Drug: Zofran 4 mg Route: IVP; Site: right antecubital; ak1 20:28 Follow up: Response: No adverse reaction ak1 19:37 Drug: NS 0.9% 1000 ml Route: IV; Rate: 1000 ml; Site: right antecubital; ak1 20:28 Follow up: IV Status: Completed infusion; IV Intake: 1000ml ak1 19:38 Drug: Benadryl 12.5 mg Route: IVP; Site: right antecubital; ak1 20:28 Follow up: Response: No adverse reaction ak1 20:27 Drug: Rocephin 1 grams Route: IV; Rate: calculated rate; Site: right antecubital; ak1 20:48 Follow up: IV Status: Completed infusion ak1 Intake: 20:28 IV: 1000ml; Total: 1000ml. ak1 Outcome: 20:39 Discharge ordered by MD. lopez 20:51 Discharged to home ambulatory, with family. ak1 20:51 Condition: good 20:51 Discharge instructions given to patient, family, Instructed on discharge instructions, follow up and referral plans. medication usage, safe sex practices, Demonstrated understanding of instructions, follow-up care, medications, Prescriptions given X 1. 20:52 Patient left the ED. ak1 Signatures: Britany Gates, DISABILITY ADVOCATE-C DISABILITY ADVOCATE-Ckb Fabian Bo, RN RN Hanna Joe RN RN fc Martinez, Amelia as Krenek, Amber, RN RN ak1 Corrections: (The following items were deleted from the chart) 20:05 19:12 UA MICROSCOPIC+U.LAB.BRZ drawn and sent. ak1 EDMS
--- NOTE | 2019-07-09 20:41 | EDPHYS ---
Physician Documentation [facility] Name: Mitzi Dunn Age: 19 yrs Sex: Female : 2000 Arrival Date: 07/09/2019 Time: 18:31 Bed 24 Private MD: ED Physician Puneet Dinero HPI: 07/09 20:32 This 19 yrs old Female presents to ER via Ambulatory with complaints of kb Urinary Problem. 20:32 The patient presents with urinary symptoms, dysuria, frequency. Onset: The kb symptoms/episode began/occurred last week. Modifying factors: The symptoms are alleviated by nothing, the symptoms are aggravated by urinating. Associated signs and symptoms: Pertinent positives: dysuria, urinary frequency. Severity of symptoms: At their worst the symptoms were moderate, in the emergency department the symptoms are unchanged. The patient has not experienced similar symptoms in the past. The patient has not recently seen a physician. 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 - Social history:: Smoking status: Patient/guardian denies using tobacco. - Ebola Screening: : Patient negative for fever greater than or equal to 101.5 degrees Fahrenheit, and additional compatible Ebola Virus Disease symptoms Patient denies exposure to infectious person Patient denies travel to an Ebola-affected area in the 21 days before illness onset No symptoms or risks identified at this time. ROS: 20:30 Constitutional: Negative for fever, chills, and weight loss, ENT: Negative for injury, kb pain, and discharge, Neck: Negative for injury, pain, and swelling, Cardiovascular: Negative for chest pain, palpitations, and edema, Respiratory: Negative for shortness of breath, cough, wheezing, and pleuritic chest pain, Abdomen/GI: Negative for abdominal pain, nausea, vomiting, diarrhea, and constipation, MS/Extremity: Negative for injury and deformity, Skin: Negative for injury, rash, and discoloration. 20:30 Back: Positive for pain at rest, of the left mid back and right mid back. 20:30 : Positive for urinary symptoms, urinary frequency, burning with urination. 20:30 Neuro: Positive for headache. Exam: 20:30 Constitutional: This is a well developed, well nourished patient who is awake, alert, kb and in no acute distress. Head/Face: Normocephalic, atraumatic. ENT: Nares patent. No nasal discharge, no septal abnormalities noted. Tympanic membranes are normal and external auditory canals are clear. Oropharynx with no redness, swelling, or masses, exudates, or evidence of obstruction, uvula midline. Mucous membranes moist. Neck: Trachea midline, no thyromegaly or masses palpated, and no cervical lymphadenopathy. Supple, full range of motion without nuchal rigidity, or vertebral point tenderness. No Meningismus. Chest/axilla: Normal chest wall appearance and motion. Nontender with no deformity. No lesions are appreciated. Cardiovascular: Regular rate and rhythm with a normal S1 and S2. No gallops, murmurs, or rubs. Normal PMI, no JVD. No pulse deficits. Respiratory: Lungs have equal breath sounds bilaterally, clear to auscultation and percussion. No rales, rhonchi or wheezes noted. No increased work of breathing, no retractions or nasal flaring. Abdomen/GI: Soft, non-tender, with normal bowel sounds. No distension or tympany. No guarding or rebound. No evidence of tenderness throughout. Back: No spinal tenderness. No costovertebral tenderness. Full range of motion. Skin: Warm, dry with normal turgor. Normal color with no rashes, no lesions, and no evidence of cellulitis. MS/ Extremity: Pulses equal, no cyanosis. Neurovascular intact. Full, normal range of motion. Neuro: Awake and alert, GCS 15, oriented to person, place, time, and situation. Cranial nerves II-XII grossly intact. Motor strength 5/5 in all extremities. Sensory grossly intact. Cerebellar exam normal. Normal gait. Vital Signs: 18:42 BP 121 / 80; Pulse 108; Resp 17; Temp 99.1; Weight 45.36 kg; Height 5 ft. 2 in. (157.48 sg cm); Pain 7/10; 20:43 BP 90 / 71; Pulse 57; Resp 16; Pulse Ox 99% on R/A; ak1 18:42 Body Mass Index 18.29 (45.36 kg, 157.48 cm) MDM: 18:52 Patient medically screened. kb 20:30 Data reviewed: vital signs, nurses notes. Data interpreted: Pulse oximetry: on room air kb is 100 %. Interpretation: normal. Counseling: I had a detailed discussion with the patient and/or guardian regarding: the historical points, exam findings, and any diagnostic results supporting the discharge/admit diagnosis, lab results, the need for outpatient follow up, a family practitioner, to return to the emergency department if symptoms worsen or persist or if there are any questions or concerns that arise at home. 07/09 19:11 Order name: CBC with Diff; Complete Time: 19:52 kb 07/09 19:11 Order name: Basic Metabolic Panel; Complete Time: 20:05 kb 07/09 19:17 Order name: UA; Complete Time: 20:01 ak1 07/09 19:59 Order name: Urine Microscopic Only; Complete Time: 20:01 EDMS 07/09 20:02 Order name: Urine Culture EDME 07/09 18:54 Order name: Urine Test (obtain specimen); Complete Time: 19:12 kb 07/09 18:54 Order name: Urine Dipstick-Ancillary (obtain specimen); Complete Time: 19:12 kb 07/09 19:11 Order name: IV Start; Complete Time: 19:37 kb Administered Medications: 19:37 Drug: TORadol 30 mg Route: IVP; Site: right antecubital; ak1 20:28 Follow up: Response: No adverse reaction ak1 19:37 Drug: Zofran 4 mg Route: IVP; Site: right antecubital; ak1 20:28 Follow up: Response: No adverse reaction ak1 19:37 Drug: NS 0.9% 1000 ml Route: IV; Rate: 1000 ml; Site: right antecubital; ak1 20:28 Follow up: IV Status: Completed infusion; IV Intake: 1000ml ak1 19:38 Drug: Benadryl 12.5 mg Route: IVP; Site: right antecubital; ak1 20:28 Follow up: Response: No adverse reaction ak1 20:27 Drug: Rocephin 1 grams Route: IV; Rate: calculated rate; Site: right antecubital; ak1 20:48 Follow up: IV Status: Completed infusion ak1 Disposition: 07/09/19 20:39 Discharged to Home. Impression: Urinary tract infection, site not specified. - Condition is Stable. - Discharge Instructions: Urinary Tract Infection, Adult, [id number]. - Prescriptions for Augmentin 875- 125 mg Oral Tablet - take 1 tablet by ORAL route every 12 hours for 10 days; 20 tablet. - Medication Reconciliation Form, Thank You Letter, Antibiotic Education, Prescription Opioid Use form. - Follow up: Emergency Department; When: As needed; Reason: Worsening of condition. Follow up: Private Physician; When: 2 - 3 days; Reason: Recheck today's complaints, Continuance of care, Re-evaluation by your physician. Signatures: Dispatcher [employer] [facility] Britany Gates, GLOBAL COMMODITY MANAGER-C GLOBAL COMMODITY MANAGER-CkFabian Panchal, RN RN sg Kaylah Flores RN RN ak1 Corrections: (The following items were deleted from the chart) 20:05 18:55 UA MICROSCOPIC+U.LAB.BRZ ordered. [facility] 20:52 20:39 07/09/2019 20:39 Discharged to Home. Impression: Urinary tract infection, site ak1 not specified. Condition is Stable. Forms are Medication Reconciliation Form, Thank You Letter, Antibiotic Education, Prescription Opioid Use. Follow up: Emergency Department; When: As needed; Reason: Worsening of condition. Follow up: Private Physician; When: 2 - 3 days; Reason: Recheck today's complaints, Continuance of care, Re-evaluation by your physician. kb
== END 2019-07-09 20:52 | disposition home or self-care (01) ==
LOC: ER 18:30
DX: N39.0 Urinary tract infection, site not specified (principal); Z88.8 Allergy status to other drugs, medicaments and biological substances
CPT/HCPCS: 96365; 96361; 87088; 85025; 87086; 80048; 36415; 96375; 99284; J7030; J2405; 81003; 81015